=== PATIENT | male | born 1955 ===

== ENCOUNTER → 2018-04-18 | Outpatient (CLI) | payer BC ==
--- NOTE | 2018-04-18 10:42 | RAD ---
EXAM DESCRIPTION: Pelvis CLINICAL HISTORY: 62 years Male, RT HIP PAIN COMPARISON: None. FINDINGS: Single AP view of the pelvis shows no acute fracture or malalignment. No significant left or right hip joint space narrowing with only mild degenerative calcifications arising from the acetabular margins posteriorly. Degenerative calcifications arise in the anterior superior iliac spines bilaterally. There is mild disc space narrowing at L4-5 with marginal osteophyte formation at several levels in the lower lumbar spine. The sacroiliac joint spaces and pubic symphysis are well-maintained. IMPRESSION: Degenerative changes in the lumbar spine and pelvis including mild degenerative changes in both hips. Electronically signed by: Shawn Guevara MD 04/18/2018 10:40 AM CDT
== END ==
LOC: RAD 08:43
PROVIDERS: ATTEND Orthopaedic Surgery
DX: M25.551 Pain in right hip (principal)

== ENCOUNTER → 2020-07-11 | Outpatient (CLI) | payer OTHER | LOC: GMA MATASK 16:12 | PROVIDERS: ATTEND Family Medicine | DX: Z00.00 Encounter for general adult medical examination without abnormal findings (principal); N40.0 Benign prostatic hyperplasia without lower urinary tract symptoms ==

== ENCOUNTER → 2020-07-20 | Outpatient (CLI) | payer OTHER ==
--- NOTE | 2020-07-20 15:51 | RAD ---
EXAM DESCRIPTION: Chest,2 Views CLINICAL HISTORY: 65 years Male, COUGH COMPARISON: and June 2015 TECHNIQUE: PA/lateral FINDINGS: Peripheral mild infiltrates are observed. The heart is within range of normal. No pleural fluid is seen. IMPRESSION: Peripheral interstitial infiltrates are observed suggestive of a viral pneumonia. Electronically signed by: Josep Mccauley MD 07/20/2020 3:49 PM [employer]
== END ==
LOC: YCFC.O 13:23
PROVIDERS: ATTEND Nurse Practitioner Family
DX: Z20.828 Contact with and (suspected) exposure to other viral communicable diseases (principal); R91.8 Other nonspecific abnormal finding of lung field; R05 Cough